=== PATIENT | female | born 1950 | race Caucasian/White ===

== ENCOUNTER 2017-11-29 09:33 | Inpatient (IN) | payer MEDICARE ==
[~2017-11-29] VITALS: Ht 157.5 cm; Wt 70.9 kg
[~2017-11-29 09:33] MED LIST: ADULT LOW DOSE81 MG PO; ASPIR 8181 MG PO; CARVEDILOL12.5 MG PO; CATAPRES PO; CATAPRES-TTS 10.1 MG TD; CEFUROXIME250 MG PO; CELEXA10 MG PO; CELEXA20 MG PO; CLARITIN10 MG PO; COLACE100 MG PO; COREG25 MG PO; CORRECTOL5 M1 PO; DAILY MULTIVIT1 EACH PO; DAILY VITAMIN1 EACH PO; DEEP SEA NASAL44 M1 INH; DIABETA 5MG TABL5 MG GT; DOK100 MG PO; EFFEXOR XR75 MG PO; FERREX 150 PLU1 EAC1 PO; FERREX 150150 MG PO; FIBER LAX625 MG PO; FIBER625 MG PO; GLUCOPHAGE500 MG PO; HUMALOG100 UNIT/1 SUBQ; HUMALOG100 UNIT/2 SQ; HUMALOG100 UNIT/2 SUBQ; HYDROCHLOROTH12.5 MG PO; HYDROCODON-ACE1 EAC7 PO; HYDROCODONE-AP1 EAC6 PO; IBUPROFEN 600600 M1 PO; KEFLEX500 MG PO; LANTUS SOL100 UNIT/1 SQ; LANTUS100 UNIT/M SUBQ; LISINOPRIL5 MG PO; LOSARTAN POTAS100 MG PO; MAPAP325 MG PO; MINOCYCLINE HC100 M2 PO; NASAL DECONGEST30 ML NASAL; POLY-IRON150 MG PO; PRINIVIL40 MG PO; PROZAC 20 MG20 M1 PO; SENEXON8.6 MG PO; TRAMADOL 50 MG50 MG PO; TYLENOL EXTRA500 MG PO; TYLENOL325 MG PO; VENLAFAXINE HCL50 MG PO; VENLAFAXINE HCL75 M1 PO; ZANTAC 150MG T150 MG PO; ZESTRIL5 MG PO; ZOCOR 20 MG TAB20 M1 PO
[2017-11-29 09:41] VITALS: BP 151/75
[2017-11-29 10:14] LABS: ABSOLUTE EOSINOPHILS 0.1 thou/uL (0.0-0.7); ABSOLUTE LYMPHOCYTES 1.5 thou/uL (0.8-5.3); ABSOLUTE MONOCYTES 0.6 thou/uL (0.0-1.2); ABSOLUTE NEUTROPHILS 5.6 thou/uL (1.6-8.1); BASOPHILS 0.6 %; EOSINOPHILS 1.8 %; HEMOGLOBIN 7.6 gm/dL (12.0-15.0); LYMPHOCYTES 18.6 %; MCH 25.2 pg (26.0-34.0); MCHC 31.7 g/dL (28.0-37.0); MCV 79.3 fL (80.0-100.0); MONOCYTES 7.4 %; MPV 8.6 fl. (7.2-11.1); NUCLEATED RBCS 0 /100WBC; PLATELET COUNT* 323 thou/uL (150-400); POLYS 71.6 %; RBC 3.03 mil/uL (4.20-5.00); RDW-CV 15.4 % (10.5-14.5); WBC 7.8 thou/uL (4.0-11.0)
[2017-11-29 10:22] LABS: ANION GAP 7 mmol/L (7-16); BUN 21 mg/dL (7-18); CHLORIDE 106 mmol/L (98-107); CO2 29 mmol/L (21-32); CREATININE 1.3 mg/dL (0.6-1.3); GLUCOSE 143 mg/dL (70-99); POTASSIUM 4.1 mmol/L (3.5-5.1); SODIUM 142 mmol/L (136-145)
[2017-11-29 10:23] LABS: APTT 25.4 Seconds (25.0-31.3); INR 1.1; PROTIME 10.6 Seconds (9.20-11.50)
[2017-11-29 10:33] LABS: ALBUMIN 3.1 g/dL (3.4-5.0); ALKALINE PHOSPHATASE 77 U/L (46-116); NT-PRO BRAIN NAT PEPTIDE 577 pg/mL (<300); SGOT 17 U/L (15-37); SGPT 14 U/L (30-65); TOTAL BILIRUBIN 0.1 mg/dL (<0.1-1.0); TOTAL PROTEIN 6.9 g/dL (6.4-8.2); TROPONIN-I LEVEL <0.06 ng/mL (<0.06)
--- NOTE | 2017-11-29 10:59 | NUR ---
VALENTÍN NOTIFIED OF PT RETURN FROM CT. PT CONNECTED TO MONITOR
[2017-11-29 11:36] LABS: URINE BILIRUBIN NEGATIVE (Negative); URINE BLOOD NEGATIVE (Negative); URINE CLARITY SL CLOUDY; URINE COLOR YELLOW; URINE GLUCOSE-RANDOM NEGATIVE (Negative); URINE KETONES NEGATIVE (Negative); URINE LEUKOCYTES-REFLEX NEGATIVE (Negative); URINE NITRITE-REFLEX POSITIVE (Negative); URINE PROTEIN TRACE (Negative); URINE SPECIFIC GRAVITY >= 1.030 (1.005-1.030); URINE UROBILINOGEN 0.2 E.U./dl (0.2-1.0)
[2017-11-29 11:48] LABS: BACTERIA-REFLEX >30 Many /HPF (None Seen); CASTS None Seen /LPF (None Seen); CRYSTALS None Seen /LPF (None Seen); SQUAMOUS 0-3 Few /LPF (0-3); URINE RBC 0-2 Rare /HPF (0-2); URINE WBC-REFLEX 6-15 Few /HPF (0-5)
--- NOTE | 2017-11-29 14:47 | EKG ---
[place] [address] ELECTROCARDIOGRAM REPORT Name: OLIVIA JO Room: [place] [address] ADM IN .R.#: [id number] Admission: 11/29/17 Attend Phys: Brandon Appiah MD Discharge: Date of : 50 Report #: [id number] THIS REPORT FOR: //name// [facility] ED Test Date: 2017-11-29 Test Time: 10:01:34 Pat Name: OLIVIA JO Department: Room: [facility] Gender: F Panel Monitor: Jenifer RICO : 1950 Requested By: Darrick Landa Order Number: [id number] MD: Justin Haile Measurements Intervals [place] Rate: 67 P: 21 CA: 150 QRS: 28 QRSD: 103 T: 16 QT: 443 QTc: 468 Interpretive Statements Sinus rhythm Minimal ST depression, lateral leads Compared to ECG 10/23/2017 13:50:31 No significant changes Electronically Signed On 11-29-2017 14:47:02 AIR SAMPLER by Justin Haile [email or web address] <ELECTRONICALLY SIGNED> By: Justin Haile MD, FAC 11/29/17 1447 1001 1001 Justin Haile MD, [facility] /EPI
[2017-11-29 15:05] VITALS: BP 141/66
[2017-11-29 15:25] VITALS: BP 169/71
--- NOTE | 2017-11-29 19:37 | NUR ---
PATIENT ARRIVED FROM ER THIS AFTERNOON. PATIENT SETTLED TO ROOM. HISTORY ASSESSMENT AND VITALS COMPLETED AND DOCUMENTED. PATIENT IS APHASIC AND UNABLE TO GET GOOD HISTORY. PATIENT IS CALM AND COOPERATIVE. PATIENT WAS TEARFUL UPON ADMISSION BUT IS CHEERFUL AT THIS TIME. PATIENT WAS ASSISTED WITH DINNER AND HAS EXCELLENT APPETITE. PATIENT DENIES ANY PAIN. BED ALARM ON. CALL LIGHT WITHIN REACH. WILL CONITNUE TO MONITOR.
[2017-11-30 00:44] VITALS: BP 167/73
[2017-11-30 04:45] LABS: ABSOLUTE BASOPHILS 0.1 thou/uL (0.0-0.2); ABSOLUTE EOSINOPHILS 0.2 thou/uL (0.0-0.7); ABSOLUTE LYMPHOCYTES 2.1 thou/uL (0.8-5.3); ABSOLUTE MONOCYTES 0.7 thou/uL (0.0-1.2); ABSOLUTE NEUTROPHILS 4.2 thou/uL (1.6-8.1); BASOPHILS 0.8 %; EOSINOPHILS 2.5 %; HEMATOCRIT 22.2 % (37.0-47.0); HEMOGLOBIN 7.1 gm/dL (12.0-15.0); LYMPHOCYTES 29.1 %; MCHC 31.9 g/dL (28.0-37.0); MCV 78.1 fL (80.0-100.0); MONOCYTES 9.6 %; MPV 8.9 fl. (7.2-11.1); NUCLEATED RBCS 0 /100WBC; PLATELET COUNT* 295 thou/uL (150-400); RBC 2.84 mil/uL (4.20-5.00); RDW-CV 14.7 % (10.5-14.5); WBC 7.3 thou/uL (4.0-11.0)
[2017-11-30 05:02] LABS: CALCIUM 8.7 mg/dL (8.5-10.1); POTASSIUM 3.6 mmol/L (3.5-5.1)
--- NOTE | 2017-11-30 07:25 | NUR ---
PT SLEPT OFF AND ON OVERNIGHT, TEARFUL AT TIMES BUT QUIETED WHEN READ NOTE LEFT BY DAUGHTER. NEW IV ACCESS R HAND, HARD STICK, IVF INFUSING PER PUMP. INCONT URINE OVERNIGHT, PAOLA CARE GIVEN. PT TURNED AND REPOSITIONED Q2 HOURS AND PRN FOR SKIN CARE AND COMFORT. REFUSED PO MEDS OVERNIGHT, STATES "I DONT THINK I BETTER" AND BECAME TEARFUL. HS ACCUCHECK 192, INSULIN GIVEN. AM LABS DRAWN. BED ALARM ON FOR SAFETY.
[2017-11-30 08:00] VITALS: BP 189/99
[2017-11-30 16:46] VITALS: BP 187/68
--- NOTE | 2017-11-30 18:46 | NUR ---
DAY 2 OF STAY. OPENS EYES WITH TOUCH, INTERMITTENTLY ABLE TO VERBALIZE NEEDS, RELUCTANT WITH CARES, ASSESSMENTS AND MEDICATION. DAUGHTER AT BEDSIDE MOST OF THIS SHIFT, MUCH MORE COMPLIANT WITH CARE. BERENICE THERAPY EVAL MINIMALLY, DIFFICULT TO MOTIVATE. INCONT OF BLADDER, NO BM THIS SHIFT. ATE ONLY BITES WITH MEALS, BLOOD GLUCOSE STABLE. CALL LIGHT IN REACH, CONT POC.
[2017-11-30 23:42] VITALS: BP 179/81
[2017-12-01 04:38] LABS: ABSOLUTE EOSINOPHILS 0.2 thou/uL (0.0-0.7); ABSOLUTE LYMPHOCYTES 2.1 thou/uL (0.8-5.3); ABSOLUTE MONOCYTES 0.6 thou/uL (0.0-1.2); BASOPHILS 0.7 %; EOSINOPHILS 3.3 %; HEMATOCRIT 21.2 % (37.0-47.0); LYMPHOCYTES 35.3 %; MCH 25.1 pg (26.0-34.0); MCHC 32.5 g/dL (28.0-37.0); MCV 77.3 fL (80.0-100.0); MONOCYTES 9.8 %; MPV 8.7 fl. (7.2-11.1); NUCLEATED RBCS 0 /100WBC; PLATELET COUNT* 282 thou/uL (150-400); POLYS 50.9 %; RBC 2.74 mil/uL (4.20-5.00); RDW-CV 15.1 % (10.5-14.5); WBC 5.8 thou/uL (4.0-11.0)
[2017-12-01 04:49] LABS: ALBUMIN 2.6 g/dL (3.4-5.0); CALCIUM 8.7 mg/dL (8.5-10.1); CREATININE 0.9 mg/dL (0.6-1.3); POTASSIUM 3.6 mmol/L (3.5-5.1); TOTAL BILIRUBIN 0.1 mg/dL (<0.1-1.0); TOTAL PROTEIN 5.8 g/dL (6.4-8.2)
[2017-12-01 05:04] LABS: HEMOGLOBIN 6.9 gm/dL (12.0-15.0)
--- NOTE | 2017-12-01 06:37 | NUR ---
PT SLEPT WELL OVERNIGHT, AWAKENS WITH CARES AND BACK TO SLEEP, TEARFUL AT TIMES, REASSURANCE GIVEN THAT DTR WILL BE IN TO SEE HER TODAY AND PT CALMS. INCONTINENT URINE, PAOLA CARE GIVEN. PT TURNED AND REPOSITIONED Q2 HOURS AND PRN. HS ACCUCHECK 93. TOOK PILLS WHOLE WITH SIP OF WATER AFTER MUCH COAXING. R HAND IVF INFUSING PER PUMP. AM LABS DRAWN, HGB 6.9, NOTIFIED AND ORDERS RECEIVED TO TRANSFUSE 1 UNIT. ATTEMPTED TO CONTACT DTR MICHELLE EVERETT BUT UNABLE TO REACH AT THIS TIME-MESSAGES LEFT ON HOME AND CELLPHONES. BED ALARM ON FOR SAFETY.
[2017-12-01 08:00] VITALS: BP 171/76
[2017-12-01 10:44] VITALS: BP 138/82; BP 146/68; BP 156/88
[2017-12-01 10:57] VITALS: BP 111/87
[2017-12-01 16:10] VITALS: BP 147/69
--- NOTE | 2017-12-01 19:40 | NUR ---
RESUMED CARE THIS AM. ORIENTED TO SELF, CONVERSATIONAL THIS MORNING, WAS ABLE TO FEED SELF WITH SETUP ASSIST. VERY CONFUSED WHEN ASKED QUESTIONS, RESPONSE MAKES NO SENSE AT ALL. COMPLIANT WITH CARES IF DAUGHTER IS AT BEDSIDE. REFUSING MEDICATION UNLESS DAUGHTER IS PRESENT. INCONTINENT OF BOWEL AND BLADDER, MODERATE SOFT BM THIS EVENING. BERENICE IVF VIA RIGHT HAND IV WITHOUT DIFFICULTY. ONE UNIT PRBC TRANSFUSED THIS AFTERNOON WITHOUT ADVERSE REACTION, TOLERATED WELL. IV IRON INFUSION ADMINISTERED WITHOUT ADVERSE RESPONSE, TOLERATED WELL. CALL LIGHT IN REACH, CONT POC.
[2017-12-01 22:00] VITALS: BP 127/69
[2017-12-02 04:26] LABS: ABSOLUTE EOSINOPHILS 0.1 thou/uL (0.0-0.7); ABSOLUTE LYMPHOCYTES 1.7 thou/uL (0.8-5.3); ABSOLUTE MONOCYTES 0.6 thou/uL (0.0-1.2); ABSOLUTE NEUTROPHILS 4.5 thou/uL (1.6-8.1); BASOPHILS 0.6 %; EOSINOPHILS 2.1 %; HEMATOCRIT 25.9 % (37.0-47.0); MCH 26.2 pg (26.0-34.0); MCHC 34.7 g/dL (28.0-37.0); MCV 75.4 fL (80.0-100.0); MONOCYTES 8.3 %; MPV 8.4 fl. (7.2-11.1); NUCLEATED RBCS 0 /100WBC; PLATELET COUNT* 273 thou/uL (150-400); RBC 3.44 mil/uL (4.20-5.00); RDW-CV 16.2 % (10.5-14.5)
[2017-12-02 05:27] LABS: ALBUMIN 2.8 g/dL (3.4-5.0); ALKALINE PHOSPHATASE 69 U/L (46-116); ANION GAP 6 mmol/L (7-16); BUN 9 mg/dL (7-18); CALCIUM 8.7 mg/dL (8.5-10.1); CHLORIDE 108 mmol/L (98-107); CO2 27 mmol/L (21-32); CREATININE 0.9 mg/dL (0.6-1.3); GLUCOSE 161 mg/dL (70-99); POTASSIUM 3.4 mmol/L (3.5-5.1); SODIUM 141 mmol/L (136-145); TOTAL BILIRUBIN 0.1 mg/dL (<0.1-1.0); TOTAL PROTEIN 6.1 g/dL (6.4-8.2)
[2017-12-02 06:30] LABS: SGOT 8 U/L (15-37); SGPT < 6 U/L (30-65)
--- NOTE | 2017-12-02 06:52 | NUR ---
PT SLEPT FAIRLY WELL OVERNIGHT AFTER RECEIVING TRAMADOL FOR LEG PAIN. TEARFUL AT START OF SHIFT. R HAND IVF INFUSING PER PUMP, IRON INFUSION COMPLETED WITHOUT DIFFICULTY. INCONTINENT URINE AND BLACK SOFT FORMED BM. HS ACCUCHECK 119. SPOKE A FEW WORDS WITH COAXING, MOSTLY QUIET WITH EYES CLOSED. AM LABS DRAWN. TURNED AND REPOSITIONED Q2 HOURS AND PRN. BED ALARM ON FOR SAFETY.
[2017-12-02 08:00] VITALS: BP 183/72
--- NOTE | 2017-12-02 11:58 | NUR ---
SW met with pt to complete initial assessment, introduce self, and SW role. Pt's eyes were open but pt did not respond to SW. From chart review, and previous record, pt lives at [facility] in [place]. Pt has rolling walker and hx of [facility]. SW to continue to follow to assist with safe dc planning.
[2017-12-02 16:00] VITALS: BP 157/67
[2017-12-02 19:31] VITALS: BP 159/69
--- NOTE | 2017-12-02 19:50 | NUR ---
RESUMED CARE THIS AM. COGNITION LABILE FROM CATATONIC TO CRYING TO LAUGHING. REFUSES TO TAKE ORAL MEDICATION UNLESS FAMILY IS PRESENT. DID SIT UP IN CHAIR FOR AFTERNOON AND EVENING. DENIES PAIN, CONT TO BE INCONTINENT OF URINE, NO BM THIS SHIFT, DID EAT 75% OF LUNCH AND SUPPER. 22G TO RIGHT HAND PATENT TO NS @ 100/HR, POTASSIUM 40 MEQ INFUSING WITHOUT DIFFICULTY. PAOLA CARE GIVEN WITH INCONTINENCE, REPOSITIONED FREQUENTLY, SKIN INTACT, CALL LIGH IN REACH.
[2017-12-03 04:09] LABS: HEMATOCRIT 27.5 % (37.0-47.0); HEMOGLOBIN 8.7 gm/dL (12.0-15.0); MCH 25.8 pg (26.0-34.0); MCHC 31.5 g/dL (28.0-37.0); MPV 9.2 fl. (7.2-11.1); RBC 3.36 mil/uL (4.20-5.00); RDW-CV 15.9 % (10.5-14.5); WBC 6.2 thou/uL (4.0-11.0)
[2017-12-03 04:21] LABS: ALBUMIN 2.9 g/dL (3.4-5.0); CALCIUM 9.3 mg/dL (8.5-10.1); CREATININE 0.9 mg/dL (0.6-1.3); MAGNESIUM 1.6 mg/dL (1.8-2.4); POTASSIUM 3.8 mmol/L (3.5-5.1); TOTAL BILIRUBIN 0.1 mg/dL (<0.1-1.0); TOTAL PROTEIN 6.4 g/dL (6.4-8.2)
[2017-12-03 04:38] LABS: MCV 81.8 fL (80.0-100.0)
--- NOTE | 2017-12-03 06:01 | NUR ---
ASSESSMENT COMPLETE. PT SLEPT MOST OF THE NIGHT WITHOUT ANY CONCERNS. PT DENIES PAIN AND N/V. PT IS ON ROOM AIR WITH [place] SATS. PT IS INCONT OF BOWEL AND BLADDER, Q2 TURN FOR SKIN INTEGRITY. SKIN INTACT AT THIS TIME. PT HAS IV FLUIDS INFUSING. SEE ASSESSMENT AND VITALS FOR OTHER DETAILS. BED ALARM ON, CALL LIGHT WITHIN REACH, WILL CONTINUE TO MONITOR
[2017-12-03 09:00] VITALS: BP 182/68
--- NOTE | 2017-12-03 16:39 | NUR ---
PATIENTS DAUGHTER HERE THIS AM AND ASSISTED WITH BREAKFAST. PATIENT COOPERATIVE IN TAKING AM MEDS WHILE DAUGHTER WAS HERE. PATIENT TEARFUL AT TIMES, CONFUSED. IVF CONT INFUSING, SCHED ABX. ORDERS FOR KUB THIS AFTERNOON, PATIENT REFUSED TEST. DR. CLIFFORD NOTIFIED THAT DAUGHTER WOULD BE BACK THIS EVENING AND WOULD TRY AGAIN. PATIENT SAT IN CHAIR THIS AM FOR APPROX 3 HOURS. INCONTINENT OF URINE AND A STOOL X 1. BED ALARM REMAINS ON FOR PATIENT SAFETY.
[2017-12-03 17:40] VITALS: BP 174/76
[2017-12-04 00:24] VITALS: BP 184/64
[2017-12-04 04:34] LABS: HEMATOCRIT 25.8 % (37.0-47.0); HEMOGLOBIN 8.7 gm/dL (12.0-15.0); MCH 26.1 pg (26.0-34.0); MCHC 33.8 g/dL (28.0-37.0); MCV 77.4 fL (80.0-100.0); MPV 8.6 fl. (7.2-11.1); RBC 3.34 mil/uL (4.20-5.00); RDW-CV 16.4 % (10.5-14.5); WBC 6.2 thou/uL (4.0-11.0)
[2017-12-04 04:45] LABS: CREATININE 0.8 mg/dL (0.6-1.3); MAGNESIUM 1.5 mg/dL (1.8-2.4); POTASSIUM 3.5 mmol/L (3.5-5.1); TOTAL BILIRUBIN 0.1 mg/dL (<0.1-1.0)
--- NOTE | 2017-12-04 06:01 | NUR ---
ASSESSMENT COMPLETE. PT SLEPT MOST OF THE NIGHT WITHOUT CONCERNS. PT IS ON ROOM AIR WITH ADEQUATE SATS. PT DENIES PAIN AND N/V. PT HAS IV FLUIDS INFUSING. PT IS INCONT, TURNED Q2 HOURS FOR SKIN INTEGRITY. PT AND FAMILY REFUSED KUB THAT WAS ORDERED. PT IS FALL RISK, BED ALARM ON. SEE ASSESSMENT AND VITALS FOR OTHER DETAILS. CALL LIGHT WITHIN REACH, WILL CONTINUE TO MONITOR.
--- NOTE | 2017-12-04 07:27 | CON ---
[address] [address] CONSULTATION Name: OLIVIA JO Room: [address] IN M.R.#: [id number] Admission: 11/29/17 Attend Phys: Brandon Appiah MD Discharge: Date of : 50 Report #: [id number] THIS REPORT FOR: //name// CC: Brandon Salas Nancy DATE OF SERVICE: 11/30/2017 HISTORY OF PRESENT ILLNESS: This is a 67-year-old female patient who was seen by me with what appeared to be unusual symptoms. The patient is aphasic; therefore, she cannot tell what the symptoms are. Daughter indicates that she had muscle cramps in both lower extremities. It causes her pain. The patient is able to convey to the patient's daughter is not clear. This is of several months' duration. It has recently become worse. When did it exactly became worse is not clear. She is admitted with urinary tract infection. REVIEW OF SYSTEMS: I had seen this patient in the past. It looks like this patient has vascular dementia. She also has a dominant hemispheric CVA. She is not able to talk much and her memory is very poor. She does have a history of anemia. She also has a history of epistaxis, diabetes, shoulder pain, wrist pain. According to the daughter, she was in [facility] when this stroke occurred and the stroke was found to be secondary to hypertension. This was a relevant 14-point review of system. PAST MEDICAL HISTORY: Positive for a stroke as well as dementia. FAMILY HISTORY: Negative for early age stroke. SOCIAL HISTORY: She lives in a intermediate. PHYSICAL EXAMINATION: NEUROLOGIC: Indicates she is alert. She does not have much speech. She does not know what month it is. She has pretty significant aphasia. Cranial nerve examination 2-12 was difficult to carry out because of her aphasia, but she has right facial weakness. She has pretty significant weakness on the right side. The left side, she can move. Sensory system examination is not possible. She does appear to be somewhat spastic on the right side. She does not understand the instruction for cerebellar sign and does not allow me to do the fundus examination. She is moderately built individual whose hearing and vision looks adequate. NECK: She has no thyroid mass. There is no carotid bruit. CARDIAC: Does not appear to be showing any definite abnormality. RESPIRATORY: Does not show any respiratory difficulty or rhonchi on either side. EXTREMITIES: She does not have much edema, cyanosis or jaundice. Pulses [place] [address] CONSULTATION Name: OLIVIA JO Room: [address] IN [facility].#: [id number] Admission: 11/29/17 Attend Phys: Brandon Appiah MD Discharge: Date of : 50 Report #: [id number] VITAL SIGNS: Blood pressure is 189/99, respiration is 14, pulse is 73, temperature is 98.2. DIAGNOSTIC DATA: She had multiple workups done. The last time she was here and when I saw her, MRI did not show any acute stroke. B12 and thyroid was normal. At this time, she had a CT scan which I reviewed and CT scan showed old stroke, but nothing new. IMPRESSION: It is possible this patient is having some spasms. It is almost impossible to tell because of the patient's aphasia. I discussed with the family a trial with baclofen. I talked to them that baclofen does have potential side effect, especially drowsiness. If drowsiness occurred, that can be stopped. RECOMMENDATIONS: Trial with baclofen at small dose; dose can be adjusted as an outpatient. Otherwise, I do not think I have much to add. I have seen this patient. Family has decided very conservative care in this patient and that is the reasonable thing to do in this patient. We will follow this patient as necessary. Please call if followup is needed. Thank you very much for this referral. <ELECTRONICALLY SIGNED> By: Andrea Desai MD 12/04/17 0727 1328 0718Andrea Desai MD /nt
[2017-12-04 08:45] VITALS: BP 146/88
--- NOTE | 2017-12-04 10:17 | NUR ---
CLAUDIA called and spoke with nursing at [facility] about pt situation and possibility for pt to return to [facility] Ana, to visit pt hopefully today to assess possible pt return or not yet. CLAUDIA met with pt and pt dtr to discuss dc planning. Pt was up in the chair and smiling and saying hello and interacting much better than at assessment. SW discussed NURSING HOME assessing if pt would be appropriate to return to NURSING HOME and if pt not ready, the possibility for SNF. Pt dtr open to that possibility and prefer [facility] or [facility]. SW faxed referrals to [facility] and [facility] and SW will continue to follow to assist with safe dc planning.
[2017-12-04 16:00] VITALS: BP 146/46
--- NOTE | 2017-12-04 17:36 | NUR ---
PATIENT COOPERATIVE THIS AM WHEN DAUGHTER AT BEDSIDE, TOOK PILLS AND ATE BREAKFAST WITHOUT DIFFICULTY. CT ABD/PELVIS THIS AFTERNOON, DR. CLIFFORD NOTIFIED OF RESULTS. MAG REPLACED VIA IV PB FOR LEVEL OF 1.5. PATIENT PATIENT REMAINS INCONTINENT OF URINE AND STOOL.
[2017-12-05] VITALS: BP 163/60
--- NOTE | 2017-12-05 07:45 | NUR ---
PATIENT SLEPT MOST OF THE NIGHT. PATIENT REFUSED TO TAKE HER MEDS. PATIENT PULLED OUT IV. PATIENT IS POSSIBLY BEING DISCHARGED BACK TO ASSISTED LIVING. WILL CONTINUE TO MONITOR.
[2017-12-05 08:20] VITALS: BP 177/55
[2017-12-05] MEDS ORDERED: FOLIC ACID1 MG PO (10:45)
[2017-12-05] MEDS ORDERED: TRAMADOL 50 MG50 MG PO (10:45)
[2017-12-05] MEDS ORDERED: MACROBID 100 M100 M2 PO (10:45)
[2017-12-05] MEDS ORDERED: LIORESAL 10 MG10 MG PO (10:45)
[2017-12-05 12:34] VITALS: BP 186/77
[2017-12-05 14:23] VITALS: BP 186/77
--- NOTE | 2017-12-05 14:28 | NUR ---
CLAUDIA met with pt and pt dtr to discuss dc planning for today. Pt dtr available to provide pt ride to [facility] at 16:00. CLAUDIA called and spoke with Kimmie at [facility] (ph [phone]) and explained pt situation of being able to feed herself and walk with walker however pt needs cues to complete tasks. Kimmie said that pt would be able to return to [facility] today. [facility] denied pt to dc to SNF stating that they felt pt would not be able to participate in therapies. [facility] did not have any beds available. Pt has her own RW. CLAUDIA faxed orders for HH to [facility] at [phone]. CLAUDIA faxed final dc orders and med list to [facility] at [phone].
--- NOTE | 2017-12-05 17:50 | NUR ---
PATIENT DISCHARGED TO HOME. DISCHARGE PAPERS REVIEWED AND SIGNED BY DAUGHTER. PRESCRIPTION AND INFORMATION SHEETS GIVEN. NO IV. PATIENT ASSISTED WITH GETTING DRESSED. PATIENT TAKEN BY WHEELCAHIR TO EXIT. LEFT WITH DAUGHTER.
--- NOTE | 2017-12-11 16:13 | CON ---
[address] [address] CONSULTATION Name: OLIVIA JO Room: [address] IN M.R.#: [id number] Admission: 11/29/17 Attend Phys: Brandon Appiah MD Discharge: 12/05/17 Date of : 50 Report #: [id number] THIS REPORT FOR: //name// CC: Brandon Cruz MD DATE OF SERVICE: 11/30/2017 REQUESTING PHYSICIAN: Brandon Appiah MD HISTORY OF PRESENT ILLNESS: This is a 67-year-old female who is well known to us as we had performed the upper and lower endoscopy back in 05/2017 to work up her anemia. These were essentially unremarkable and during her visit to a hospital on 10/19/2017, we recommended capsule endoscopy, which has been since completed. The results of this were unrevealing. The patient denies any hematochezia or melena. She has microcytic anemia with MCV of 77. The patient denies abdominal pain, dysphagia or odynophagia, nausea, vomiting or hematemesis. PAST MEDICAL HISTORY: Significant for diabetes mellitus, hypertension, dementia, gallbladder disease, status post cholecystectomy, depression, history of CVA with aphasia and hysterectomy. ALLERGIES AND MEDICATIONS: Please refer to hospital MAR. SOCIAL HISTORY: The patient lives in a nursing facility, has Alzheimer type dementia and denies tobacco or alcohol use. FAMILY HISTORY: Noncontributory. PHYSICAL EXAMINATION: VITAL SIGNS: Reveal blood pressure of 189/99, respirations 14, pulse 73, temperature 98.2. LUNGS: Decreased breath sounds bilaterally. CARDIOVASCULAR: Regular rate. ABDOMEN: Soft, nontender, nondistended. Bowel sounds are positive. NEUROLOGIC: She is aphasic and has a delay in response to questions. LABORATORY DATA: Reveal sodium of 144, potassium 3.6, BUN is 18, creatinine 1.0, glucose 99. Liver function tests all within normal limits. BNP is 577, iron saturation is 29 with a ferritin of 10. Folate and B12 levels are within normal limits. WBC is 7.3, hemoglobin 7.1 with MCV of 78.1 and platelet [place] [address] CONSULTATION Name: SANDROOLIVIA M Room: [address]#: [id number] Admission: 11/29/17 Attend Phys: Brandon Appiah MD Discharge: 12/05/17 Date of : 50 Report #: [id number] IMAGING TEST: CT of abdomen and pelvis was obtained, which showed chronic left KRISTEN infarct. This appears to be chronic. ASSESSMENT AND PLAN: The patient with weakness and microcytic anemia, which is not iron deficiency. The patient also has normal B12 and folic acid. Given her symptoms of weakness and microcytic anemia, I will consider copper levels as this can cause similar presentation. We will make further recommendation once the copper levels are obtained. Note that the patient's workup for gastrointestinal bleed is complete and no further endoscopy is indicated at this time. <ELECTRONICALLY SIGNED> By: Sam Parrish MD 12/11/17 1613 1358 0015Sam Parrish MD /nt
== END 2017-12-05 17:50 | disposition home health service (06) | DRG 689 ==
LOC: M.ERS 09:33 → M.TBA-ER 12:22 → M.3W 12:22
PROVIDERS: Emergency Medicine; Internal Medicine; ADMIT Internal Medicine
PROC: 30233N1 Transfusion of Nonautologous Red Blood Cells into Peripheral Vein, Percutaneous Approach (ICD-10-PCS; principal; 2017-12-01)
DX: N39.0 Urinary tract infection, site not specified (principal); G92 Toxic encephalopathy; R65.10 Systemic inflammatory response syndrome (SIRS) of non-infectious origin without acute organ dysfunction; E44.0 Moderate protein-calorie malnutrition; E86.0 Dehydration; D50.9 Iron deficiency anemia, unspecified; I10 Essential (primary) hypertension; G30.9 Alzheimer's disease, unspecified; F01.50 Vascular dementia, unspecified severity, without behavioral disturbance, psychotic disturbance, mood disturbance, and anxiety; F02.80 Dementia in other diseases classified elsewhere, unspecified severity, without behavioral disturbance, psychotic disturbance, mood disturbance, and anxiety; E11.9 Type 2 diabetes mellitus without complications; R19.7 Diarrhea, unspecified; E53.8 Deficiency of other specified B group vitamins; F32.9 Major depressive disorder, single episode, unspecified; I69.320 Aphasia following cerebral infarction; Z90.49 Acquired absence of other specified parts of digestive tract; Z90.710 Acquired absence of both cervix and uterus; Z79.4 Long term (current) use of insulin; Z79.82 Long term (current) use of aspirin; Z79.899 Other long term (current) drug therapy; Z68.28 Body mass index [BMI] 28.0-28.9, adult; Z23 Encounter for immunization

== ENCOUNTER 2018-01-24 21:01 | Emergency (ER) | payer MEDICARE ==
[~2018-01-24] VITALS: Ht 157.5 cm; Wt 72.6 kg
[~2018-01-24 21:01] MED LIST changes: +FOLIC ACID1 MG PO; +LIORESAL 10 MG10 MG PO; +MACROBID 100 M100 M2 PO
[2018-01-24 21:37] LABS: ABSOLUTE EOSINOPHILS 0.2 thou/uL (0.0-0.7); ABSOLUTE LYMPHOCYTES 2.5 thou/uL (0.8-5.3); ABSOLUTE MONOCYTES 0.7 thou/uL (0.0-1.2); ABSOLUTE NEUTROPHILS 3.6 thou/uL (1.6-8.1); BASOPHILS 0.5 %; EOSINOPHILS 2.6 %; HEMATOCRIT 37.5 % (37.0-47.0); HEMOGLOBIN 12.5 gm/dL (12.0-15.0); LYMPHOCYTES 35.1 %; MCHC 33.3 g/dL (28.0-37.0); MCV 84.1 fL (80.0-100.0); MONOCYTES 10.1 %; MPV 8.5 fl. (7.2-11.1); NUCLEATED RBCS 0 /100WBC; PLATELET COUNT* 254 thou/uL (150-400); POLYS 51.7 %; RBC 4.46 mil/uL (4.20-5.00); RDW-CV 21.3 % (10.5-14.5)
[2018-01-24 21:39] LABS: URINE BILIRUBIN NEGATIVE (Negative); URINE BLOOD NEGATIVE (Negative); URINE CLARITY CLEAR; URINE COLOR YELLOW; URINE GLUCOSE-RANDOM NEGATIVE (Negative); URINE KETONES NEGATIVE (Negative); URINE LEUKOCYTES-REFLEX 1+ (Negative); URINE PROTEIN TRACE (Negative); URINE UROBILINOGEN 0.2 E.U./dl (0.2-1.0)
[2018-01-24 21:42] LABS: URINE NITRITE-REFLEX POSITIVE (Negative)
[2018-01-24 21:52] LABS: HYALINE CASTS 4-10 Moderate /LPF (None Seen); MUCUS 0-3 Light strn/LPF (None Seen); SQUAMOUS >10 Many /LPF (0-3)
[2018-01-24 21:53] LABS: BACTERIA-REFLEX >30 Many /HPF (None Seen); URINE WBC-REFLEX >25 Many /HPF (0-5)
[2018-01-24 21:54] LABS: CRYSTALS None Seen /LPF (None Seen); URINE RBC 0-2 Rare /HPF (0-2); WBC CLUMPS Few (None Seen)
[2018-01-24 21:55] LABS: CALCIUM 9.5 mg/dL (8.5-10.1); CREATININE 1.1 mg/dL (0.6-1.3); POTASSIUM 3.8 mmol/L (3.5-5.1)
[2018-01-24 21:59] LABS: ALBUMIN 3.3 g/dL (3.4-5.0); TOTAL BILIRUBIN 0.1 mg/dL (<0.1-1.0)
[2018-01-24 22:18] LABS: PLATELET ESTIMATE ADEQUATE
[2018-01-24 22:20] LABS: ANISOCYTOSIS 2+
[2018-01-24 22:21] LABS: MICROCYTES Occasional
[2018-01-24] MEDS ORDERED: BACTRIM DS TAB1 EACH PO (22:32)
[2018-01-24 23:08] VITALS: BP 133/66
--- NOTE | 2018-01-26 12:59 | EKG ---
[place] [address] ELECTROCARDIOGRAM REPORT Name: OLIVIA JO Room: [facility]#: [id number] Admission: 01/24/18 Attend Phys: Discharge: 01/24/18 Date of : 50 Report #: [id number] THIS REPORT FOR: //name// [facility] ED Test Date: 2018-01-24 Test Time: 21:14:42 Pat Name: OLIVIA JO Department: Room: Gender: F Site Identification Specialist: ARIANNA Burgess : 1950 Requested By: Cheryl Francois Order Number: [id number] MD: Luis M Damon Measurements Intervals [place] Rate: 51 P: 37 TN: 144 QRS: 18 QRSD: 95 T: 89 QT: 515 QTc: 475 Interpretive Statements Sinus rhythm Probable left atrial enlargement Borderline repolarization abnormality Compared to ECG 11/29/2017 10:01:34 ST (T wave) deviation no longer present Electronically Signed On 01-26-2018 12:58:59 CDT by Luis M Damon [email or web address] <ELECTRONICALLY SIGNED> By: Haleigh Damon MD, [facility] 01/26/18 1258 13 13 Haleigh Damon MD, [facility] /EPI
== END 2018-01-24 23:09 | disposition home or self-care (01) ==
LOC: M.ERS 21:01
PROVIDERS: Emergency Medicine
DX: N39.0 Urinary tract infection, site not specified (principal); I10 Essential (primary) hypertension; E11.9 Type 2 diabetes mellitus without complications; Z90.49 Acquired absence of other specified parts of digestive tract; Z90.710 Acquired absence of both cervix and uterus

== ENCOUNTER 2018-02-13 14:38 | Emergency (ER) | payer MEDICARE ==
[~2018-02-13] VITALS: Ht 165.1 cm; Wt 72.0 kg
[~2018-02-13 14:38] MED LIST changes: +BACTRIM DS TAB1 EACH PO
[2018-02-13 15:12] LABS: ABSOLUTE EOSINOPHILS 0.1 thou/uL (0.0-0.7); ABSOLUTE LYMPHOCYTES 1.8 thou/uL (0.8-5.3); ABSOLUTE MONOCYTES 0.7 thou/uL (0.0-1.2); ABSOLUTE NEUTROPHILS 4.4 thou/uL (1.6-8.1); BASOPHILS 0.5 %; EOSINOPHILS 1.6 %; HEMATOCRIT 39.9 % (37.0-47.0); HEMOGLOBIN 13.1 gm/dL (12.0-15.0); LYMPHOCYTES 25.4 %; MCHC 32.9 g/dL (28.0-37.0); MCV 85.2 fL (80.0-100.0); MONOCYTES 9.7 %; MPV 8.2 fl. (7.2-11.1); NUCLEATED RBCS 0 /100WBC; PLATELET COUNT* 256 thou/uL (150-400); POLYS 62.8 %; RBC 4.69 mil/uL (4.20-5.00); RDW-CV 20.8 % (10.5-14.5)
[2018-02-13 15:19] LABS: ANION GAP 7 mmol/L (7-16); BUN 29 mg/dL (7-18); CALCIUM 9.4 mg/dL (8.5-10.1); CHLORIDE 105 mmol/L (98-107); CO2 32 mmol/L (21-32); CREATININE 1.3 mg/dL (0.6-1.3); GLUCOSE 137 mg/dL (70-99); SODIUM 144 mmol/L (136-145)
[2018-02-13 15:20] LABS: APTT 27.1 Seconds (25.0-31.3); INR 1.1; PROTIME 10.8 Seconds (9.20-11.50)
[2018-02-13 15:26] LABS: ALBUMIN 3.4 g/dL (3.4-5.0); ALKALINE PHOSPHATASE 111 U/L (46-116); ANISOCYTOSIS 1+; HYPOCHROMASIA 1+; PLATELET ESTIMATE ADEQUATE; SGOT 17 U/L (15-37); SGPT 19 U/L (30-65); TOTAL BILIRUBIN 0.2 mg/dL (<0.1-1.0); TOTAL PROTEIN 7.2 g/dL (6.4-8.2); TROPONIN-I LEVEL <0.06 ng/mL (<0.06)
[2018-02-13 16:59] VITALS: BP 198/80
--- NOTE | 2018-02-14 11:24 | EKG ---
[place] [address] ELECTROCARDIOGRAM REPORT Name: OLIVIA JO Room: [facility]#: [id number] Admission: 02/13/18 Attend Phys: Discharge: 02/13/18 Date of : 50 Report #: [id number] THIS REPORT FOR: //name// [facility] ED Test Date: 2018-02-13 Test Time: 15:48:45 Pat Name: OLIVIA JO Department: Room: Gender: F Banking Officer: Jenifer MORALES : 1950 Requested By: Justus Patten Order Number: [id number] MD: Adrien Chiu Measurements Intervals [place] Rate: 63 P: 47 [place]: 131 QRS: 15 QRSD: 101 T: 76 QT: 476 QTc: 488 Interpretive Statements Sinus rhythm Minimal ST depression, anterolateral leads Borderline prolonged QT interval Compared to ECG 01/24/2018 21:14:42 no change Electronically Signed On 02-14-2018 11:23:52 CDT by Adrien Chiu [email or web address] <ELECTRONICALLY SIGNED> By: Adrien Chiu MD, [facility] 02/14/18 1123 1548 1548 Adrien Chiu MD, [facility] /EPI
== END 2018-02-13 17:25 | disposition home or self-care (01) ==
LOC: M.ERS 14:38
PROVIDERS: Family Medicine
DX: F02.80 Dementia in other diseases classified elsewhere, unspecified severity, without behavioral disturbance, psychotic disturbance, mood disturbance, and anxiety (principal); G30.8 Other Alzheimer's disease; I10 Essential (primary) hypertension; E11.9 Type 2 diabetes mellitus without complications; F32.9 Major depressive disorder, single episode, unspecified; F41.9 Anxiety disorder, unspecified; Z79.4 Long term (current) use of insulin; Z90.49 Acquired absence of other specified parts of digestive tract; Z90.710 Acquired absence of both cervix and uterus; Z86.73 Personal history of transient ischemic attack (TIA), and cerebral infarction without residual deficits; Z86.2 Personal history of diseases of the blood and blood-forming organs and certain disorders involving the immune mechanism; W18.39XA Other fall on same level, initial encounter; Y93.89 Activity, other specified; Y92.89 Other specified places as the place of occurrence of the external cause; Y99.8 Other external cause status

== ENCOUNTER 2018-02-19 14:09 | Emergency (ER) | payer MEDICARE ==
[~2018-02-19] VITALS: Ht 160 cm; Wt 73.5 kg
[2018-02-19 14:45] LABS: ABSOLUTE EOSINOPHILS 0.1 thou/uL (0.0-0.7); ABSOLUTE MONOCYTES 0.5 thou/uL (0.0-1.2); ABSOLUTE NEUTROPHILS 5.3 thou/uL (1.6-8.1); BASOPHILS 0.2 %; LYMPHOCYTES 24.8 %; MCH 28.5 pg (26.0-34.0); MCHC 33.3 g/dL (28.0-37.0); MCV 85.5 fL (80.0-100.0); MONOCYTES 6.7 %; MPV 8.7 fl. (7.2-11.1); NUCLEATED RBCS 0 /100WBC; PLATELET COUNT* 243 thou/uL (150-400); POLYS 67.3 %; RDW-CV 20.1 % (10.5-14.5); WBC 7.9 thou/uL (4.0-11.0)
[2018-02-19 14:51] LABS: ANION GAP 8 mmol/L (7-16); BUN 28 mg/dL (7-18); CALCIUM 9.2 mg/dL (8.5-10.1); CHLORIDE 106 mmol/L (98-107); CO2 28 mmol/L (21-32); CREATININE 1.1 mg/dL (0.6-1.3); GLUCOSE 172 mg/dL (70-99); POTASSIUM 3.8 mmol/L (3.5-5.1); SODIUM 142 mmol/L (136-145)
[2018-02-19 14:52] LABS: APTT 26.3 Seconds (25.0-31.3); INR 1.1; PROTIME 10.6 Seconds (9.20-11.50)
[2018-02-19 14:58] LABS: ALKALINE PHOSPHATASE 104 U/L (46-116); SGOT 19 U/L (15-37); SGPT 23 U/L (30-65); TOTAL BILIRUBIN 0.3 mg/dL (<0.1-1.0); TOTAL PROTEIN 6.6 g/dL (6.4-8.2); TROPONIN-I LEVEL <0.06 ng/mL (<0.06)
[2018-02-19 16:08] VITALS: BP 148/88
--- NOTE | 2018-02-19 17:35 | EKG ---
[place] [address] ELECTROCARDIOGRAM REPORT Name: OLIVIA JO Room: [facility]#: [id number] Admission: 02/19/18 Attend Phys: Discharge: 02/19/18 Date of : 50 Report #: [id number] THIS REPORT FOR: //name// [facility] ED Test Date: 2018-02-19 Test Time: 14:19:42 Pat Name: OLIVIA JO Department: Room: Gender: F Passenger Coach Driver: Jenifer RICO : 1950 Requested By: Justus Patten Order Number: [id number] MD: Adrien Chiu Measurements Intervals [place] Rate: 69 P: 1 [place]: 129 QRS: 8 QRSD: 77 T: 111 QT: 471 QTc: 505 Interpretive Statements Sinus rhythm with short pr interval Probable LVH with secondary repolarization Compared to ECG 02/13/2018 15:48:45 LEFT VENTRICULAR HYPERTROPHY now present Electronically Signed On 02-19-2018 17:35:39 CDT by Adrien Chiu [email or web address] <ELECTRONICALLY SIGNED> By: Adrien Chiu MD, [facility] 02/19/18 1735 1419 1419 Adrien Chiu MD, [facility] /EPI
[2018-02-19 18:23] LABS: PLATELET ESTIMATE ADEQUATE
[2018-02-19 18:24] LABS: ANISOCYTOSIS 2+; MACROCYTES Occasional; MICROCYTES Occasional; OVALOCYTES Occasional
== END 2018-02-19 16:10 | disposition home or self-care (01) ==
LOC: M.ERS 14:09
PROVIDERS: Family Medicine
DX: R41.82 Altered mental status, unspecified (principal); I10 Essential (primary) hypertension; E11.9 Type 2 diabetes mellitus without complications; F32.9 Major depressive disorder, single episode, unspecified; F41.9 Anxiety disorder, unspecified; G30.9 Alzheimer's disease, unspecified; F02.80 Dementia in other diseases classified elsewhere, unspecified severity, without behavioral disturbance, psychotic disturbance, mood disturbance, and anxiety; Z90.49 Acquired absence of other specified parts of digestive tract; Z90.710 Acquired absence of both cervix and uterus; Z86.73 Personal history of transient ischemic attack (TIA), and cerebral infarction without residual deficits; Z86.2 Personal history of diseases of the blood and blood-forming organs and certain disorders involving the immune mechanism; Z79.4 Long term (current) use of insulin; W18.39XA Other fall on same level, initial encounter; Y93.89 Activity, other specified; Y92.89 Other specified places as the place of occurrence of the external cause; Y99.8 Other external cause status

== ENCOUNTER 2018-06-22 10:25 | Inpatient (IN) | payer MEDICARE, MEDICAID ==
[~2018-06-22] VITALS: Ht 154.9 cm; Wt 70.0 kg
[2018-06-22 10:27] VITALS: BP 152/85
[2018-06-22] MEDS ORDERED: PRIMAXIN IV (10:32)
[2018-06-22] MEDS ORDERED: NORVASC5 MG PO (10:33)
[2018-06-22 10:50] LABS: ABSOLUTE EOSINOPHILS 0.1 thou/uL (0.0-0.7); ABSOLUTE LYMPHOCYTES 1.9 thou/uL (0.8-5.3); ABSOLUTE MONOCYTES 0.5 thou/uL (0.0-1.2); ABSOLUTE NEUTROPHILS 5.9 thou/uL (1.6-8.1); BASOPHILS 0.4 %; EOSINOPHILS 1.1 %; HEMATOCRIT 39.3 % (37.0-47.0); HEMOGLOBIN 13.2 gm/dL (12.0-15.0); LYMPHOCYTES 22.1 %; MCH 29.5 pg (26.0-34.0); MCHC 33.7 g/dL (28.0-37.0); MCV 87.5 fL (80.0-100.0); MONOCYTES 5.9 %; MPV 8.3 fl. (7.2-11.1); NUCLEATED RBCS 0 /100WBC; PLATELET COUNT* 317 thou/uL (150-400); POLYS 70.5 %; RBC 4.48 mil/uL (4.20-5.00); RDW-CV 13.1 % (10.5-14.5); WBC 8.4 thou/uL (4.0-11.0)
[2018-06-22 11:14] LABS: CALCIUM 9.7 mg/dL (8.5-10.1); CREATININE 1.1 mg/dL (0.6-1.3)
[2018-06-22 11:18] LABS: ALBUMIN 3.3 g/dL (3.4-5.0); TOTAL BILIRUBIN 0.2 mg/dL (<0.1-1.0); TOTAL PROTEIN 7.4 g/dL (6.4-8.2)
[2018-06-22 14:10] LABS: BE 2.3 mmol/L (-2 to +3); HCO3 26.4 mmol/L (22.0-26.0); PCO2 39.3 mmHg (35.0-45.0); PO2 75.3 mmHg (75.0-100.0); pH 7.445 (7.340-7.450)
[2018-06-22 14:27] LABS: URINE BILIRUBIN NEGATIVE (Negative); URINE BLOOD NEGATIVE (Negative); URINE CLARITY CLEAR; URINE COLOR YELLOW; URINE GLUCOSE-RANDOM NEGATIVE (Negative); URINE KETONES TRACE (Negative); URINE LEUKOCYTES-REFLEX TRACE (Negative); URINE NITRITE-REFLEX NEGATIVE (Negative); URINE PROTEIN NEGATIVE (Negative); URINE SPECIFIC GRAVITY 1.025 (1.005-1.030); URINE UROBILINOGEN 0.2 E.U./dl (0.2-1.0)
[2018-06-22 14:56] LABS: CASTS None Seen /LPF (None Seen); SQUAMOUS 4-10 Moderate /LPF (0-3); URINE WBC-REFLEX 6-15 Few /HPF (0-5)
[2018-06-22 14:57] LABS: URINE RBC None Seen /HPF (0-2)
[2018-06-22 14:58] LABS: BACTERIA-REFLEX 1-9 Few /HPF (None Seen); CRYSTALS None Seen /LPF (None Seen)
[2018-06-22 15:25] VITALS: BP 153/78
[2018-06-22 15:31] VITALS: BP 168/75
[2018-06-22] MEDS ORDERED: FERREX 150150 MG PO (16:04)
[2018-06-22] MEDS ORDERED: FOLIC ACID1 MG PO (16:05)
[2018-06-22] MEDS ORDERED: PRINIVIL20 M1 PO (16:19)
[2018-06-22] MEDS ORDERED: ZANTAC 150MG T150 M1 PO (16:20)
[2018-06-22] MEDS ORDERED: UNICOMPLEX M TA1 TA1 PO (16:20)
[2018-06-22] MEDS ORDERED: TYLENOL EXTRA500 MG PO (16:21)
[2018-06-22] MEDS ORDERED: VENLAFAXINE HCL75 M2 PO (16:21)
[2018-06-22] MEDS ORDERED: DULCOLAX5 MG PO (16:22)
[2018-06-22 23:53] VITALS: BP 118/67
[2018-06-23 04:00] VITALS: BP 118/70
[2018-06-23 05:02] LABS: ABSOLUTE EOSINOPHILS 0.1 thou/uL (0.0-0.7); ABSOLUTE LYMPHOCYTES 1.7 thou/uL (0.8-5.3); ABSOLUTE MONOCYTES 0.6 thou/uL (0.0-1.2); BASOPHILS 0.6 %; EOSINOPHILS 1.9 %; HEMATOCRIT 37.1 % (37.0-47.0); HEMOGLOBIN 12.5 gm/dL (12.0-15.0); LYMPHOCYTES 22.7 %; MCH 29.4 pg (26.0-34.0); MCHC 33.6 g/dL (28.0-37.0); MCV 87.3 fL (80.0-100.0); MONOCYTES 7.7 %; MPV 8.1 fl. (7.2-11.1); NUCLEATED RBCS 0 /100WBC; PLATELET COUNT* 276 thou/uL (150-400); POLYS 67.1 %; RBC 4.25 mil/uL (4.20-5.00); RDW-CV 13.3 % (10.5-14.5); WBC 7.5 thou/uL (4.0-11.0)
[2018-06-23 05:35] LABS: CALCIUM 9.3 mg/dL (8.5-10.1); CREATININE 0.7 mg/dL (0.6-1.3); POTASSIUM 3.3 mmol/L (3.5-5.1)
[2018-06-23 08:00] VITALS: BP 127/96
[2018-06-23 12:06] VITALS: BP 139/83
[2018-06-23 16:47] VITALS: BP 154/80
[2018-06-23 20:00] VITALS: BP 153/72
[2018-06-24] VITALS: BP 137/85
[2018-06-24 03:59] LABS: ABSOLUTE BASOPHILS 0.1 thou/uL (0.0-0.2); ABSOLUTE EOSINOPHILS 0.1 thou/uL (0.0-0.7); ABSOLUTE LYMPHOCYTES 1.7 thou/uL (0.8-5.3); ABSOLUTE MONOCYTES 0.6 thou/uL (0.0-1.2); ABSOLUTE NEUTROPHILS 4.5 thou/uL (1.6-8.1); BASOPHILS 1.2 %; EOSINOPHILS 1.8 %; HEMATOCRIT 36.2 % (37.0-47.0); HEMOGLOBIN 12.3 gm/dL (12.0-15.0); LYMPHOCYTES 24.6 %; MCH 29.5 pg (26.0-34.0); MONOCYTES 8.3 %; MPV 9.1 fl. (7.2-11.1); NUCLEATED RBCS 0 /100WBC; PLATELET COUNT* 267 thou/uL (150-400); POLYS 64.1 %; RBC 4.16 mil/uL (4.20-5.00); RDW-CV 13.1 % (10.5-14.5)
[2018-06-24 04:00] VITALS: BP 175/69
[2018-06-24 04:05] LABS: ALBUMIN 2.8 g/dL (3.4-5.0); CALCIUM 8.2 mg/dL (8.5-10.1); CREATININE 0.9 mg/dL (0.6-1.3); POTASSIUM 3.6 mmol/L (3.5-5.1); TOTAL BILIRUBIN 0.2 mg/dL (<0.1-1.0); TOTAL PROTEIN 6.3 g/dL (6.4-8.2)
--- NOTE | 2018-06-24 07:58 | CON ---
[address] [address] CONSULTATION Name: OLIVIA JO Room: [address] IN .R.#: [id number] Admission: 06/22/18 Attend Phys: Brandon Appiah MD Discharge: Date of : 50 Report #: [id number] THIS REPORT FOR: //name// CC: Brandon York DATE OF SERVICE: 06/23/2018 INFECTIOUS DISEASE CONSULTATION ATTENDING PHYSICIAN: Brandon Appiah M.D. REASON FOR EVALUATION: Thrombophlebitis related to a PICC line, recent treatment with IV antibiotics for a complicated urinary tract. She does have diabetes mellitus and some dementia as well. HISTORY OF PRESENT ILLNESS: This is a 68-year-old with fairly significant dementia, previous strokes, history of diabetes, lives in a facility, had a right upper extremity PICC line. They were concerned about infiltration. She was evaluated in the Emergency Room. Her right arm was swollen and tender. It is not clear if she had significant fevers, PICC line apparently has only been in for a short period of time and it was removed. Reason for the PICC line included a complicated urinary tract infection due to Escherichia coli that was found to be extended spectrum beta lactamase producing. She was empirically started on meropenem. ALLERGIES: None known. MEDICATIONS: Include rivaroxaban, amlodipine, venlafaxine, multivitamin, lisinopril, aspirin, folic acid, carvedilol, meropenem, pantoprazole. PAST MEDICAL HISTORY: Above noted diabetes mellitus type 2, insulin requiring; hypertension; has history of Alzheimer's; vasculopathy with previous stroke; chronic anemia; depression; anxiety; previous cholecystectomy and hysterectomy. SOCIAL HISTORY: Nonsmoker, no ethanol. FAMILY HISTORY: Noncontributory. REVIEW OF SYSTEMS: Not obtainable. PHYSICAL EXAMINATION: GENERAL: She appears chronically ill, undernourished. She does have overt evidence of a fairly significant dementia at this point. She does make eye contact, it is not clear that she is tracking to any reasonable degree. VITAL SIGNS: Temperature 98.4, pulse 66, respirations 19, [place] [address] CONSULTATION Name: OLIVIA JO Room: [address]#: [id number] Admission: 06/22/18 Attend Phys: Brandon Appiah MD Discharge: Date of : 50 Report #: [id number] 127/96. SKIN: Warm, dry, no rashes. HEENT: Otherwise, unremarkable. NECK: Supple. LUNGS: Diminished. HEART: Regular. I do not appreciate a murmur. ABDOMEN: Soft, nontender, nondistended. EXTREMITIES: Right upper extremity does have a contused area. I think the overall degree of inflammation, in particular swelling and redness, has gone down. I can elicit a significant amount of tenderness to palpation. GENITOURINARY AND RECTAL: Deferred. LABORATORY DATA: Blood cultures are sterile thus far. Electrolytes: Sodium 139, potassium 3.6, chloride 104, bicarbonate is 29, BUN and creatinine 13 and 0.7. CBC: White count of 7.5, H and H 12.5 and 37.1, platelets of 276. Chest x-ray, no acute process. Urinalysis 6-15 white cells, 1-9 bacteria. Lactic acid 0.9. ABGs: pH 7.445, pCO2 of 39.3, pO2 of 75.3, FiO2 of 21%. Doppler showed DVT within the distal right subclavian vein and right axillary vein extending to the proximal cephalic vein. Electrolytes: Sodium 142, potassium 4.0, chloride 106, bicarbonate 28, anion gap of 8, BUN and creatinine 24 and 1.1, glucose of 150. LFTs unremarkable. Albumin 3.3, total protein 7.4. Estimated GFR 49. CBC: White count of 8.4, H and H 13.2 and 39.3, platelets of 317. Differential unremarkable. ASSESSMENT: Right upper extremity deep venous thrombosis apparently as a result of a PICC placed over the last several days, was going to be initiated on parenteral therapy, I think meropenem is reasonable. We will try to obtain the actual culture results of the ESBL E. coli isolated from her urine previously. Blood and urine cultures are pending. At this point, she is not overtly toxic, certainly do not know her baseline mentation. At this point, it is quite profound encephalopathy. <ELECTRONICALLY SIGNED> By: Jarod Michaels MD 06/24/18 0758 1116 1806Jarod Michaels MD /nt
[2018-06-24 08:10] VITALS: BP 168/86
[2018-06-24 11:21] VITALS: BP 170/75
[2018-06-24 15:39] VITALS: BP 148/62
[2018-06-24 20:00] VITALS: BP 138/54
[2018-06-25] VITALS (7 sets, daily range): BP systolic 142–212; BP diastolic 60–91
[2018-06-26] VITALS: BP 146/67
[2018-06-26 04:44] VITALS: BP 148/70
[2018-06-26 08:00] VITALS: BP 178/83
[2018-06-26 11:56] VITALS: BP 191/67
[2018-06-26] MEDS ORDERED: AUGMENTIN 500-1 EACH PO (13:07)
[2018-06-26] MEDS ORDERED: XARELTO15 MG PO (13:19)
== END 2018-06-26 14:00 | DRG 314 ==
LOC: M.ERS 10:25 → M.2W 13:54 → M.TBA-ER 13:54 → M.2W 15:23
PROVIDERS: Personal Emergency Response Attendant; ADMIT Internal Medicine
PROC: 02HV33Z Insertion of Infusion Device into Superior Vena Cava, Percutaneous Approach (ICD-10-PCS; principal; 2018-06-22)
PROC: B548ZZA Ultrasonography of Superior Vena Cava, Guidance (ICD-10-PCS; principal; 2018-06-22)
DX: T82.868A Thrombosis due to vascular prosthetic devices, implants and grafts, initial encounter (principal); G93.40 Encephalopathy, unspecified; I82.A11 Acute embolism and thrombosis of right axillary vein; N39.0 Urinary tract infection, site not specified; R65.10 Systemic inflammatory response syndrome (SIRS) of non-infectious origin without acute organ dysfunction; Y83.8 Other surgical procedures as the cause of abnormal reaction of the patient, or of later complication, without mention of misadventure at the time of the procedure; E11.9 Type 2 diabetes mellitus without complications; I10 Essential (primary) hypertension; G30.9 Alzheimer's disease, unspecified; F01.50 Vascular dementia, unspecified severity, without behavioral disturbance, psychotic disturbance, mood disturbance, and anxiety; F02.80 Dementia in other diseases classified elsewhere, unspecified severity, without behavioral disturbance, psychotic disturbance, mood disturbance, and anxiety; F32.9 Major depressive disorder, single episode, unspecified; B96.20 Unspecified Escherichia coli [E. coli] as the cause of diseases classified elsewhere; Z16.12 Extended spectrum beta lactamase (ESBL) resistance; F41.9 Anxiety disorder, unspecified; Z90.49 Acquired absence of other specified parts of digestive tract; Z90.710 Acquired absence of both cervix and uterus; Z79.01 Long term (current) use of anticoagulants; Z79.4 Long term (current) use of insulin; Z79.82 Long term (current) use of aspirin; Z79.899 Other long term (current) drug therapy; Y92.89 Other specified places as the place of occurrence of the external cause